=== PATIENT | female | born 1995 | race Caucasian/White ===

== ENCOUNTER 2017-01-05 15:32 | Emergency (ER) | payer OTHER ==
[~2017-01-05] VITALS: Ht 154.9 cm; Wt 54.0 kg
[2017-01-05 15:35] VITALS: BP 132/71
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
[2017-01-05] MEDS ORDERED: IBUPROFEN 800 MG TAB PO ONE (18:30)
[2017-01-05] MEDS ORDERED: cefTRIAXone 250 MG in LIDOCAINE 1% ED 0.9 ML IM ONE (18:35)
[2017-01-05] MEDS ORDERED: AZITHROMYCIN 250 MG TAB PO ONE (18:35)
[2017-01-05 19:09] VITALS: BP 119/79
--- NOTE | 2017-01-05 19:09 | NUR ---
Patient discharged with v/s stable. Written and verbal after care instructions given and explained. Patient alert, oriented and verbalized understanding of instructions. Ambulatory with steady gait. All questions addressed prior to discharge. ID band removed. Patient advised to follow up with PMD. Rx of BACTRIM TRAMADOL & MOTRIN given. Patient educated on indication of medication including possible reaction and side effects. Opportunity to ask questions provided and answered.
[2017-01-07 06:06] LABS: CHLAMYDIA TRACHOMATIS AMP DNA Negative (Negative)
== END 2017-01-05 19:09 | disposition home or self-care (01) ==
LOC: MED 15:32
DX: A28.1 Cat-scratch disease (principal); R03.0 Elevated blood-pressure reading, without diagnosis of hypertension
CPT/HCPCS: 36415; 81002; 81025; 87491; 96372; 99283; J0696; J2001

== ENCOUNTER 2020-04-08 16:04 | Emergency (ER) | payer MEDICAID, OTHER ==
[~2020-04-08] VITALS: Ht 152.4 cm; Wt 52.2 kg
[2020-04-08 16:15] VITALS: BP 120/69
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
--- NOTE | 2020-04-08 16:23 | NUR ---
XRAY AT BEDSIDE
--- NOTE | 2020-04-08 16:25 | NUR ---
MICHEL BARBER AT BEDSIDE EXAMINING PT
[2020-04-08] MEDS ORDERED: KETOROLAC 30 MG/ML VIAL IM ONE (16:30)
[2020-04-08 17:20] VITALS: BP 120/69
--- NOTE | 2020-04-08 17:21 | NUR ---
Patient discharged with v/s stable. Written and verbal after care instructions given and explained. Patient alert, oriented and verbalized understanding of instructions. Ambulatory with steady gait. All questions addressed prior to discharge. ID band removed. Patient advised to follow up with PMD. Rx of IBUPROFEN,KEFLEX given. Patient educated on indication of medication including possible reaction and side effects. Opportunity to ask questions provided and answered.
== END 2020-04-08 17:21 | disposition home or self-care (01) ==
LOC: MED 16:04
DX: S93.492A Sprain of other ligament of left ankle, initial encounter (principal); W22.8XXA Striking against or struck by other objects, initial encounter; Y93.89 Activity, other specified; Y92.89 Other specified places as the place of occurrence of the external cause; Y99.8 Other external cause status
CPT/HCPCS: 73610; 73630; 90471; 90715; 96372; 99284; J1885; Q0092

== ENCOUNTER 2021-05-02 01:15 | Emergency (ER) | payer SELFPAY ==
[~2021-05-02] VITALS: Ht 157.5 cm; Wt 61.7 kg
--- NOTE | 2021-05-02 01:18 | NUR ---
CALLED PATIENT BACK FOR TRIAGE AND IN RESTROOM.
[2021-05-02 01:34] VITALS: BP 115/80
--- NOTE | 2021-05-02 01:38 | NUR ---
PT TAKEN TO BED 8
--- NOTE | 2021-05-02 01:40 | NUR ---
PATIENT 25 Y/O FEMALE BIB SELF FOR C/O L SIDED THROAT PAIN. PATIENT STATES PAIN 8/10 AND CAUSES DIFFIDULTY SWALLOWING. PATIENT STATES PAIN BEGAN 2 DAYS AGO. PATIENT DENIES COUGH OR SOB. PAIN ORAL MUCOSA PINK, MOIST, AND INTACT. PATIENT NOTED WITH WHITE PATCH ON L TONSIL. PATIENT DENIES TAKING PAIN MEDICATIONS AT HOME. AFERBILE. MEDHX: ASTHMA NKA
--- NOTE | 2021-05-02 01:52 | NUR ---
ERMD AT BEDSIDE.
--- NOTE | 2021-05-02 01:52 | NUR ---
Judy davidson in [facility] - 05/02/21 at [address] Pham examining patient.
[2021-05-02] MEDS ORDERED: KETOROLAC 60 MG/2 ML VIAL IM ONE (02:00)
[2021-05-02] MEDS ORDERED: PENICILLIN G BENZATHINE L-A 1.2 MU/2 ML SYR IM ONE (02:00)
[2021-05-02] MEDS ORDERED: PRED20TA5 PO (02:10)
[2021-05-02] MEDS ORDERED: IBUP-2213 PO (02:10)
[2021-05-02 02:53] VITALS: BP 115/80
--- NOTE | 2021-05-02 02:53 | NUR ---
Patient discharged with v/s stable. Written and verbal after care instructions given and explained. Patient alert, oriented and verbalized understanding of instructions. Ambulatory with steady gait. All questions addressed prior to discharge. ID band removed. Patient advised to follow up with PMD. Rx of PREDNISONE AND IBUPROFEN given. Patient educated on indication of medication including possible reaction and side effects. Opportunity to ask questions provided and answered.
== END 2021-05-02 02:53 | disposition home or self-care (01) ==
LOC: MED 01:15
DX: J02.0 Streptococcal pharyngitis (principal); J45.909 Unspecified asthma, uncomplicated
CPT/HCPCS: 96372; 99283; J0561; J1885